=== PATIENT | female | born 1970 | race Asian ===

== ENCOUNTER 2022-03-03 22:19 | Emergency (ER) | payer OTHER, BC ==
[2022-03-04] MEDS ORDERED: Boostrix 0.5 ML (Tdap) VIAL (>/=7 yrs of age) ONE
== END 2022-03-04 00:15 | disposition home or self-care (01) ==
LOC: ERS 22:19
DX: S20.212A Contusion of left front wall of thorax, initial encounter (principal); S40.812A Abrasion of left upper arm, initial encounter; V32.9XXA Unspecified occupant of three-wheeled motor vehicle injured in collision with two- or three-wheeled motor vehicle in traffic accident, initial encounter
CPT/HCPCS: 90471; 90715